=== PATIENT | female | born 1980 | race Caucasian/White ===

== ENCOUNTER 2021-11-15 09:57 | Emergency (ER) | payer SELFPAY ==
[~2021-11-15] VITALS: Ht 157 cm; Wt 68.0 kg
[2021-11-15] MEDS ORDERED: FAMOTIDINE 20 MG (PEPCID) TABLET PO STA (10:25)
--- NOTE | 2021-11-15 10:28 | ED Chest Pain ---
General Chief Complaint: Chest Pain Stated Complaint: CP Source: patient Exam Limitations: language barrier (Language line was used) History of Present Illness Date Seen by Provider: November 15, 2021 Time Seen by Provider: 10:00 Initial Comments Patient to the ER by private conveyance from [facility] where she was seen for her chest pain since Monday and sent here. She says she had an EKG done there which was told to be normal. She did not bring it with her. She does not have a history of heart disease. She does not smoke have hypertension hyperlipidemia diabetes. She does not follow with any doctor routinely. 4 weeks ago she started having some burning in her chest from time to time as well as feeling worn out and short of breath. She says the pain started when she was exerting herself on Monday and has been coming and going, sharp left chest and radiating from her epigastrium up and down her sternum. She does not have a history of GERD or reflux. She does not have a history of surgeries or trauma. She says she had a brother who had a stroke at age 62. She is not a smoker dr whipple or using of recreational drugs. She rates her pain as a 7 out of 10. Allergies and Home Medications Allergies Coded Allergies: No Known Drug Allergies (Unverified , 11/15/21) Patient Home Medication List Home Medication List Reviewed: Yes Review of Systems Review of Systems Constitutional: No chills, No diaphoresis EENTM: No Blurred Vision, No Double Vision Respiratory: Denies Cough, Denies Orthopnea Cardiovascular: Chest Pain; Denies Lightheadedness Gastrointestinal: Denies Constipated, Denies Diarrhea, Denies Nausea Genitourinary: Denies Burning, Denies Discharge Musculoskeletal: No back pain, No joint pain All Other Systems Reviewed Negative Unless Noted: Yes Past [id number] Hx Patient Social History Tobacco Use?: No Use of E-Cig and/or Vaping dev: No Substance use?: No Alcohol Use?: No Physical Exam Vital Signs Vital Signs - First Documented 11/15/21 10:02 Temp 36.2 Pulse 80 Resp 20 B/P (MAP) 143/91 (108) Pulse Ox 99 O2 Delivery Room Air Capillary Refill : Height, Weight, BMI Height: '" Weight: lbs. oz. kg; BMI Method: General Appearance: WD/WN, Anxious, Mild Distress HEENT: PERRL/EOMI, Pharynx Normal, Moist Mucous Membranes Neck: Full Range of Motion, Normal Inspection, Non Tender Respiratory: Lungs Clear, Normal Breath Sounds, No Accessory Muscle Use, No Respiratory Distress Cardiovascular: Regular Rate, Rhythm, No Edema, No Murmur, Normal Peripheral Pulses Gastrointestinal: Normal Bowel Sounds, No Organomegaly, Soft, Tenderness (Epigastric region tender to palpation without mass) Extremity: Normal Capillary Refill, Normal Inspection, Normal Range of Motion, No Pedal Edema Neurologic/Psychiatric: Alert, Oriented x3 Skin: Normal Color, Warm/Dry Progress/Results/Core Measures Results/Orders Lab Results Laboratory Tests Test 11/15/21 10:26 11/15/21 10:39 11/15/21 12:33 Range/Units White Blood Count 9.1 4.3-11.0 10^3/uL Red Blood Count 4.63 3.80-5.11 10^6/uL Hemoglobin 14.7 11.5-16.0 g/dL Hematocrit 43 35-52 % Mean Corpuscular Volume 94 80-99 fL Mean Corpuscular Hemoglobin 32 25-34 pg Mean Corpuscular Hemoglobin Concent 34 32-36 g/dL Red Cell Distribution Width 12.7 10.0-14.5 % Platelet Count 278 130-400 10^3/uL Mean Platelet Volume 9.9 9.0-12.2 fL Immature Granulocyte % (Auto) 0 % Neutrophils (%) (Auto) 33 L 42-75 % Lymphocytes (%) (Auto) 30 12-44 % Monocytes (%) (Auto) 8 0-12 % Eosinophils (%) (Auto) 27 H 0-10 % Basophils (%) (Auto) 1 0-10 % Neutrophils # (Auto) 3.0 1.8-7.8 10^3/uL Lymphocytes # (Auto) 2.7 1.0-4.0 10^3/uL Monocytes # (Auto) 0.8 0.0-1.0 10^3/uL Eosinophils # (Auto) 2.5 H 0.0-0.3 10^3/uL Basophils # (Auto) 0.1 0.0-0.1 10^3/uL Immature Granulocyte # (Auto) 0.0 0.0-0.1 10^3/uL Neutrophils % (Manual) 35 % Lymphocytes % (Manual) 33 % Monocytes % (Manual) 9 % Eosinophils % (Manual) 20 % Basophils % (Manual) 2 % Band Neutrophils 1 % Blood Morphology Comment NORMAL Prothrombin Time 12.0 L 12.2-14.7 SEC INR Comment 0.9 0.8-1.4 Activated Partial Thromboplast Time 27 24-35 SEC Sodium Level 141 135-145 MMOL/L Potassium Level 3.9 3.6-5.0 MMOL/L Chloride Level 106 98-107 MMOL/L Carbon Dioxide Level 25 21-32 MMOL/L Anion Gap 10 5-14 MMOL/L Blood Urea Nitrogen 12 7-18 MG/DL Creatinine 0.69 0.60-1.30 MG/DL Estimat Glomerular Filtration Rate 112 BUN/Creatinine Ratio 17 Glucose Level 95 70-105 MG/DL Calcium Level 9.6 8.5-10.1 MG/DL Corrected Calcium 9.4 8.5-10.1 MG/DL Magnesium Level 1.9 1.6-2.4 MG/DL Total Bilirubin 0.6 0.1-1.0 MG/DL Aspartate Amino Transf (AST/SGOT) 21 5-34 U/L Alanine Aminotransferase (ALT/SGPT) 33 0-55 U/L Alkaline Phosphatase 105 40-136 U/L Myoglobin 35.1 10.0-92.0 NG/ML Troponin I < 0.028 < 0.028 <0.028 NG/ML Total Protein 7.8 6.4-8.2 GM/DL Albumin 4.3 3.2-4.5 GM/DL Lipase 8 8-78 U/L Urine Color YELLOW Urine Clarity CLEAR Urine pH 6.5 5-9 Urine Specific [place] <=1.005 1.016-1.022 Urine Protein NEGATIVE NEGATIVE Urine Glucose (UA) NEGATIVE NEGATIVE Urine Ketones NEGATIVE NEGATIVE Urine Nitrite NEGATIVE NEGATIVE Urine Bilirubin NEGATIVE NEGATIVE Urine Urobilinogen 0.2 < = 1.0 MG/DL Urine Leukocyte Esterase NEGATIVE NEGATIVE Urine RBC (Auto) NEGATIVE NEGATIVE Urine RBC NONE /HPF Urine WBC RARE /HPF Urine Squamous Epithelial Cells 0-2 /HPF Urine Crystals NONE /LPF Urine Bacteria NEGATIVE /HPF Urine Casts NONE /LPF Urine Mucus NEGATIVE /LPF Urine Culture Indicated NO My Orders Orders - JAMIL العراقي Ekg Tracing (11/15/21 10:01) Continuous Ekg Monitoring (11/15/21 10:05) Cbc With Automated Diff (11/15/21 10:25) Magnesium (11/15/21 10:25) Chest 1 View, Ap/Pa Only (11/15/21 10:25) Comprehensive Metabolic Panel (11/15/21 10:25) Myoglobin Serum (11/15/21 10:25) Protime With Inr (11/15/21 10:25) Partial Thromboplastin Time (11/15/21 10:25) O2 (11/15/21 10:25) Lipid Panel (11/16/21 06:00) Ed Iv/Invasive Line Start (11/15/21 10:25) Lipase (11/15/21 10:25) Troponin I Ransom (11/15/21 10:25) Aspirin Chewable Tablet (Baby Aspirin Ch (11/15/21 10:30) Lidocaine 2% Viscous 15 Ml (Xylocaine Vi (11/15/21 10:30) Famotidine Tablet (Pepcid Tablet) (11/15/21 10:25) Antacid Suspension (Mylanta Suspension (11/15/21 10:30) Ua Culture If Indicated (11/15/21 10:28) Urine Bedside (11/15/21 10:28) Manual Differential (11/15/21 10:26) Troponin I Ransom (11/15/21 12:30) Medications Given in ED Current Medications Medications Dose Ordered Sig/Demetrius Route Start Time Stop Time Status Last Admin Dose Admin Al Hydrox/Mg Hydrox/Simethicone 30 ml ONCE ONCE PO 11/15/21 10:30 11/15/21 10:31 DC 11/15/21 10:39 30 ML Aspirin 324 mg ONCE ONCE PO 11/15/21 10:30 11/15/21 10:31 DC 11/15/21 10:39 324 MG Lidocaine HCl 15 ml ONCE ONCE PO 11/15/21 10:30 11/15/21 10:31 DC 11/15/21 10:39 15 ML Vital Signs/I&O 11/15/21 10:02 Temp 36.2 Pulse 80 Resp 20 B/P (MAP) 143/91 (108) Pulse Ox 99 O2 Delivery Room Air Progress Progress Note #1: Time: 10:27 Progress Note 324 mg of aspirin to chew and swallow then we will trial a GI cocktail. If this does not help we will trial nitroglycerin. Progress Note #2: Time: 11:30 Progress Note Patient is pain-free after the GI cocktail. No nitroglycerin was given. Suspect she has GERD however given her family history she ranks 2 points on the HEART Pathway Score. Low risk; 0.9-1.7% 30-day MACE. Delta troponin at 1230. We will have her follow-up with cardiology and establish care with primary care doctor Initial ECG Impression Date: November 15, 2021 Initial ECG Impression Time: 10:05 Initial ECG Rate: 80 Initial ECG Rhythm: Normal Sinus Initial ECG Intervals: Normal Initial ECG Impression: Normal Initial ECG Comparisson: No Previous ECG Available Comment Normal sinus rhythm without clinically relevant ST changes. Diagnostic Imaging Diagonstic Imaging: Xray Plain Films/CT/US/NM/MRI: chest Comments [facility] [place], [place] NAME: FERNANDA [facility] REC#: [id number] PT STATUS: REG ER : 1980 PHYSICIAN: JAMIL العراقي MD ADMIT DATE: 11/15/21/ER Draft Date of Exam:11/15/21 CHEST 1 VIEW, AP/PA ONLY INDICATION: Chest pain Frontal chest obtained at 1043 a.m. Heart and mediastinal silhouette are normal in appearance. The lungs are clear. There is no pneumothorax or pleural fluid. IMPRESSION: Negative chest. Dictated on workstation # [id number] Dict: 11/15/21 1055 Trans: 11/15/21 1057 [facility] [id number] Interpreted by: ALFRED NG MD Electronically signed by: Reviewed: Reviewed by Me Departure Impression Primary Impression: Chest pain Qualified Codes: R07.9 - Chest pain, unspecified Additional Impression: Gastritis Qualified Codes: K29.00 - Acute gastritis without bleeding Disposition: HOME, SELF-CARE Condition: Stable Departure-Patient Inst. Decision time for Depature: 13:09 Referrals: NO,LOCAL PHYSICIAN (PCP) Primary Care Physician ERICA WELLS JR, MD Patient Instructions: Chest Pain, Adult ED, Gastritis (DC), LOCAL PHYSICIAN LIST Add. Discharge Instructions: I think your chest pain was related to your stomach acid. I would like you to start taking omeprazole daily for 2 to 4 weeks to see if this helps. Omeprazole is [id number] and can be obtained at any local pharmacy. Because of your brothers history of stroke at a young age I would still like you to follow-up with a director drug to discuss your risk for heart disease. It would be curtis for you to establish care with a primary care doctor and have a thorough examination. They can also help you manage your gastritis if it is persistent. If the pain comes back you can try Tums, Rolaids, Maalox, Mylanta etc. You should return to the ER if you are having severe chest pain, shortness of air or other worrisome symptoms. All discharge instructions reviewed with patient and/or family. Voiced understanding. Work/School Note: Work Release Form Date Seen in the Emergency Department: November 15, 2021 Return to Work: November 16, 2021 Restrictions: No Restrictions Copy Copies To 1: ERICA WELLS JR, MD WELLER, TITUS J November 15, 2021 10:28
[2021-11-15] MEDS ORDERED: ASPIRIN 81 MG CHEW (CHILDREN'S ASA) PO ONE (10:30)
[2021-11-15] MEDS ORDERED: LIDOCAINE 2% VISCOUS 15 ML UDC PO ONE (10:30)
[2021-11-15] MEDS ORDERED: ANTACID SUSP 30 ML UDC (MYLANTA) PO ONE (10:30)
[2021-11-15 10:37] LABS: BASOPHILS # (AUTO) 0.1 10^3/uL (0.0-0.1); BASOPHILS % (AUTO) 1 % (0-10); EOSINOPHILS # (AUTO) 2.5 10^3/uL (0.0-0.3); EOSINOPHILS % (AUTO) 27 % (0-10); HEMATOCRIT 43 % (35-52); HEMOGLOBIN 14.7 g/dL (11.5-16.0); LYMPHOCYTES # (AUTO) 2.7 10^3/uL (1.0-4.0); LYMPHOCYTES % (AUTO) 30 % (12-44); MEAN CORPUSCULAR HEMOGLOBIN 32 pg (25-34); MEAN CORPUSCULAR HGB CONC 34 g/dL (32-36); MEAN CORPUSCULAR VOLUME 94 fL (80-99); MEAN PLATELET VOLUME 9.9 fL (9.0-12.2); MONOCYTES # (AUTO) 0.8 10^3/uL (0.0-1.0); MONOCYTES % (AUTO) 8 % (0-12); NEUTROPHILS % (AUTO) 33 % (42-75); PLATELET COUNT 278 10^3/uL (130-400); WHITE BLOOD COUNT 9.1 10^3/uL (4.3-11.0)
[2021-11-15 10:42] LABS: BILIRUBIN,URINE NEGATIVE (NEGATIVE); CLARITY,URINE CLEAR; COLOR,URINE YELLOW; GLUCOSE, URINE (UA) NEGATIVE (NEGATIVE); KETONES,URINE NEGATIVE (NEGATIVE); LEUKOCYTE ESTERASE ,URINE NEGATIVE (NEGATIVE); NITRITE,URINE NEGATIVE (NEGATIVE); PH,URINE 6.5 (5-9); PROTEIN,URINE NEGATIVE (NEGATIVE)
[2021-11-15 10:43] LABS: ALBUMIN 4.3 GM/DL (3.2-4.5); POTASSIUM 3.9 MMOL/L (3.6-5.0)
[2021-11-15 10:45] LABS: CALCIUM 9.6 MG/DL (8.5-10.1)
[2021-11-15 10:46] LABS: TOTAL PROTEIN 7.8 GM/DL (6.4-8.2)
[2021-11-15 10:47] LABS: BILIRUBIN,TOTAL 0.6 MG/DL (0.1-1.0)
[2021-11-15 10:49] LABS: CREATININE SERUM 0.69 MG/DL (0.60-1.30); INR 0.9 (0.8-1.4)
[2021-11-15 10:51] LABS: BACTERIA,URINE NEGATIVE /HPF; SQUAMOUS EPITHELIAL CELL,UR 0-2 /HPF; WBC,URINE RARE /HPF
[2021-11-15 10:52] LABS: MAGNESIUM 1.9 MG/DL (1.6-2.4)
--- NOTE | 2021-11-15 10:57 | Diagnostic Imaging Report ---
INDICATION: Chest pain Frontal chest obtained at 1043 a.m. Heart and mediastinal silhouette are normal in appearance. The lungs are clear. There is no pneumothorax or pleural fluid. IMPRESSION: Negative chest. Dictated by: Dictated on workstation # [id number]
[2021-11-15 11:24] LABS: BAND NEUTROPHILS 1 %; BASOPHILS % (MANUAL) 2 %; EOSINOPHILS % (MANUAL) 20 %; LYMPHOCYTES % (MANUAL) 33 %; MONOCYTES % (MANUAL) 9 %; NEUTROPHILS % (MANUAL) 35 %
[2021-11-15 11:25] LABS: RBC MORPH NORMAL
[2021-11-15 13:20] VITALS: BP 114/70
== END 2021-11-15 13:20 | disposition home or self-care (01) ==
LOC: ER 10:00
DX: K29.00 Acute gastritis without bleeding (principal); F17.200 Nicotine dependence, unspecified, uncomplicated
CPT/HCPCS: 36415; 71045; 80053; 81000; 83690; 83735; 83874; 84484; 84703; 85007; 85027; 85610; 85730; 93005